=== PATIENT | female | born 1970 | race Caucasian/White ===

== ENCOUNTER → 2016-07-22 | Outpatient (CLI) | payer BC ==
[~2016-07-22] MED LIST: HYZAAR 100-21 TABLET PO; KEFLEX500 MG PO; METFORMIN HCL1000 MG PO; REGLAN10 MG PO; ULTRAM50 MG PO; ZOFRAN4 MG PO
== END | disposition home or self-care (01) ==
LOC: NUC 07:19
DX: R11.2 Nausea with vomiting, unspecified (principal); R10.11 Right upper quadrant pain
CPT/HCPCS: 78227; A9537; J2805

== ENCOUNTER → 2016-09-14 | Outpatient (CLI) | payer BC ==
[~2016-09-14] VITALS: Ht 157.5 cm; Wt 88.0 kg
[~2016-09-14] MED LIST changes: +LO-DOSE ASPIRIN81 M2 PO; +OMEPRAZOLE40 M1 PO; +TRADJENTA5 MG PO; +VITAMIN D31000 UNI2 PO
[2016-09-14 09:07] LABS: POINT-OF-CARE METER ID UU13113694
[2016-09-14 10:39] LABS: POINT-OF-CARE METER ID UU13113675
== END | disposition home or self-care (01) ==
LOC: AMB 08:00
PROVIDERS: Internal Medicine Gastroenterology
DX: R10.11 Right upper quadrant pain (principal); K80.20 Calculus of gallbladder without cholecystitis without obstruction; E27.8 Other specified disorders of adrenal gland
CPT/HCPCS: 82948; 93005; J0330; J1100; J1200; J1720; J2405; J2765; J3010; S0028

== ENCOUNTER 2017-01-03 21:47 | Inpatient (IN) | payer BC ==
[~2017-01-03] VITALS: Ht 157.5 cm; Wt 94.8 kg
[~2017-01-03 21:47] MED LIST changes: +ELAVIL25 MG PO
[2017-01-04 13:20] VITALS: BP 113/80
[2017-01-04 14:10] LABS: POINT-OF-CARE METER ID UU13113694
[2017-01-04 19:51] LABS: POINT-OF-CARE METER ID UU13113675
[2017-01-04 22:03] LABS: HEMATOCRIT 37.7 % (36.0-46.0); MCH 30.1 PG (29.0-34.0); MCHC 34.5 G/DL (30.0-36.0); MCV 87.3 FL (83-99); MEAN PLAT.VOLUME 10.3 uM^3 (9.5-12.4); PLATELET COUNT 262 K/uL (156-360); RBC DIS.WIDTH-CV 12.8 % (11.8-14.6); RBC DIS.WIDTH-SD 40.6 % (39-53); RED BLOOD COUNT 4.32 M/uL (3.80-5.20); WHITE BLOOD COUNT 17.2 K/uL (4.1-10.2)
[2017-01-04 22:27] LABS: ANION GAP 11 MEQ/L (2-14); CHLORIDE 95 MEQ/L (99-109); GFR ESTIMATE (CALCULATED) > 59 mL/min/; GLUCOSE 267 mg/dL (70-99); POTASSIUM 3.5 MEQ/L (3.7-5.4); SAMPLE HEMOLYSIS CHECK 0; SAMPLE ICTERIC CHECK 0; SAMPLE LIPEMIA CHECK 0; SODIUM 130 MEQ/L (136-147); UREA NITROGEN (BUN) 16 mg/dL (9-23)
[2017-01-04 23:47] VITALS: BP 126/75
[2017-01-05 01:41] LABS: POINT-OF-CARE METER ID UU14208750
[2017-01-05 04:11] VITALS: BP 112/6
[2017-01-05 06:11] LABS: HEMATOCRIT 38.2 % (36.0-46.0); MCH 29.9 PG (29.0-34.0); MCV 87.8 FL (83-99); MEAN PLAT.VOLUME 10.5 uM^3 (9.5-12.4); PLATELET COUNT 309 K/uL (156-360); RBC DIS.WIDTH-SD 42.2 % (39-53); RED BLOOD COUNT 4.35 M/uL (3.80-5.20); WHITE BLOOD COUNT 12.4 K/uL (4.1-10.2)
[2017-01-05 06:34] LABS: ANION GAP 11 MEQ/L (2-14); CHLORIDE 93 MEQ/L (99-109); GFR ESTIMATE (CALCULATED) > 59 mL/min/; GLUCOSE 210 mg/dL (70-99); SAMPLE HEMOLYSIS CHECK 0; SAMPLE ICTERIC CHECK 0; SAMPLE LIPEMIA CHECK 0; SODIUM 133 MEQ/L (136-147); UREA NITROGEN (BUN) 14 mg/dL (9-23)
[2017-01-05 06:37] LABS: POTASSIUM 4.5 MEQ/L (3.7-5.4)
[2017-01-05 07:45] VITALS: BP 127/80
[2017-01-05 11:45] VITALS: BP 142/81
[2017-01-05 16:10] VITALS: BP 134/86
[2017-01-05 19:25] VITALS: BP 110/65
[2017-01-05 21:38] LABS: POINT-OF-CARE METER ID UU14208750
[2017-01-05 23:18] VITALS: BP 127/77
[2017-01-06 06:00] LABS: HEMATOCRIT 36.6 % (36.0-46.0); MCH 28.7 PG (29.0-34.0); MCHC 32.5 G/DL (30.0-36.0); MCV 88.4 FL (83-99); PLATELET COUNT 223 K/uL (156-360); RED BLOOD COUNT 4.14 M/uL (3.80-5.20); WHITE BLOOD COUNT 9.4 K/uL (4.1-10.2)
[2017-01-06 06:22] LABS: ANION GAP 7 MEQ/L (2-14); CHLORIDE 97 MEQ/L (99-109); GFR ESTIMATE (CALCULATED) > 59 mL/min/; GLUCOSE 212 mg/dL (70-99); SAMPLE HEMOLYSIS CHECK 0; SAMPLE ICTERIC CHECK 0; SAMPLE LIPEMIA CHECK 0; SODIUM 136 MEQ/L (136-147); UREA NITROGEN (BUN) 14 mg/dL (9-23)
[2017-01-06 06:28] LABS: POINT-OF-CARE METER ID UU14208750
[2017-01-06 07:25] VITALS: BP 120/82
[2017-01-06] MEDS ORDERED: TRAMADOL HCL50 MG PO (09:52)
== END 2017-01-06 10:52 | disposition home or self-care (01) | DRG 741 ==
LOC: ENRESERV 21:47 → 2SOUTH 01-04 11:36 → 2EAST 01-04 12:27 → 2SOUTH 01-04 12:27 → ENRESERV 01-04 19:35 → 2EAST 01-04 22:46
PROVIDERS: Obstetrics & Gynecology Gynecologic Oncology
DX: C54.1 Malignant neoplasm of endometrium (principal); I10 Essential (primary) hypertension; E78.5 Hyperlipidemia, unspecified; K76.0 Fatty (change of) liver, not elsewhere classified; K31.84 Gastroparesis; E11.43 Type 2 diabetes mellitus with diabetic autonomic (poly)neuropathy; E55.9 Vitamin D deficiency, unspecified; Z83.3 Family history of diabetes mellitus; Z90.5 Acquired absence of kidney
CPT/HCPCS: 36415; 80048; 82948; 85027; 86900; 86901; 86920; 88305; 88309; 94799; C1758; J0131; J0360; J0690; J1100; J1170; J1650; J1815; J1885; J2175; J2250; J2405; J2710; J2765; J3010; J7120